=== PATIENT | female | born 1995 ===

== ENCOUNTER → 2019-01-25 | Outpatient (CLI) | payer OTHER ==
[2019-01-25 10:36] LABS: Basophils % (A) 0 %; Eosinophils # (A) 0.3 k/uL (0-0.7); Eosinophils % (A) 3 %; HCT 41.4 % (34.0-46.0); HGB 13.6 gm/dL (11.4-16.0); Lymphocytes # (A) 2.7 k/uL (1.0-4.8); Lymphocytes % (A) 26 %; MCH 27.3 pg (25.0-35.0); MCV 82.9 fL (80.0-100.0); Mean Platelet Volume 6.5; Monocytes # (A) 0.4 k/uL (0-1.0); Monocytes % (A) 4 %; Neutrophils # (A) 6.6 k/uL (1.3-7.7); Neutrophils % (A) 64 %; Platelet Count 392 k/uL (150-450); RBC 4.99 m/uL (3.80-5.40); RDW 13.5 % (11.5-15.5); WBC 10.2 k/uL (3.8-10.6)
[2019-01-25 17:26] LABS: African American GFR (CKD) 146.8 (60.0-200.0); Albumin 4.5 g/dL (3.80-4.90); Albumin/Globulin Ratio 1.8 (1.60-3.17); Anion Gap 8.7 mmol/L (4.00-12.00); Calcium 9.2 mg/dL (8.7-10.3); Carbon Dioxide 21.3 mmol/L (21.6-31.8); Chol/HDL Ratio 5.83; Globulin 2.5 g/dL (1.6-3.3); LDL Cholesterol,Calculated 78.4 mg/dL (0.0-131.0); Non-African American GFR(CKD) 126.7 (60.0-200.0); Potassium 4.5 mmol/L (3.5-5.5); Total Bilirubin 0.2 mg/dL (0.3-1.2); VLDL Calculation 66.6 mg/dL (5.00-40.00)
[2019-01-25 21:14] LABS: Estimated Average Glucose 136.98; Hemoglobin A1C 6.4 % (4.0-6.0)
== END | disposition home or self-care (01) ==
LOC: LABWHC1 09:44
PROVIDERS: ATTEND Family Medicine
DX: Z00.00 Encounter for general adult medical examination without abnormal findings (principal); Z12.4 Encounter for screening for malignant neoplasm of cervix
CPT/HCPCS: 36415; 80053; 80061; 83036; 84443; 85025

== ENCOUNTER 2019-02-18 17:52 | Emergency (ER) | payer OTHER ==
[2019-02-18 17:56] VITALS: BP 142/92; PULSE 105; RESP 18; TEMP 98.2
[2019-02-18] MEDS ORDERED: FAMOTIDINE 20 MG TAB PO STA (18:42)
[2019-02-18] MEDS ORDERED: predniSONE 20 MG TAB PO STA (18:42)
[2019-02-18] MEDS ORDERED: AMOXICILLIN 875 MG TAB PO STA (18:44)
--- NOTE | 2019-02-18 18:55 | ED ---
General Adult HPI - General Chief complaint: ENT Stated complaint: Sore throat Time Seen by Provider: 02/18/19 18:28 Source: patient Mode of arrival: ambulatory Limitations: no limitations - History of Present Illness Initial comments: Patient is 23-year-old female presenting to emergency Department with chief complaint of sore throat and sinus congestion. Patient states her symptoms began about 3 days ago and affect gradually increasing severity. She does report sinus congestion along with clear bilateral rhinorrhea. Denies any facial pressure or headaches. Also reports a nonproductive cough. Denies any wheezing or shortness of breath or chest pain. Denies taking medication to alleviate the symptoms. No history of asthma or smoking. She is also complaining of a rash near the coccyx. Patient reports she is fairly active and does not sit for prolonged periods of time. Denies any night sweats fever or chills. - Related Data Previous Rx's Medication Instructions Recorded Amoxicillin 875 mg PO Q12HR #20 tablet 02/18/19 Triamcinolone 0.5% Cream [Kenalog 1 applic TOPICAL BID #1 bottle 02/18/19 0.5% Cream] Allergies Allergy/AdvReac Type Severity Reaction Status Date / Time No Known Allergies Allergy Verified 02/18/19 17:56 Review of Systems ROS Statement: Those systems with pertinent positive or pertinent negative responses have been documented in the HPI. ROS Other: All systems not noted in ROS Statement are negative. Past Medical History Past Medical History: Unable to Obtain History of Any Multi-Drug Resistant Organisms: None Reported Past Surgical History: Unable to Obtain Past Psychological History: No Psychological Hx Reported Smoking Status: Never smoker Past Alcohol Use History: None Reported Past Drug Use History: None Reported General Exam Limitations: no limitations General appearance: alert, in no apparent distress Head exam: Present: atraumatic, normocephalic, normal inspection Eye exam: Present: normal appearance, PERRL, EOMI. Absent: conjunctival injection Pupils: Present: normal accommodation ENT exam: Present: normal exam, mucous membranes moist, TM's normal bilaterally, normal external ear exam. Absent: normal oropharynx (Bilateral enlarged tonsils with erythema. No exudates. Uvula midline. No drooling or changes in voice.) Neck exam: Present: normal inspection, full ROM. Absent: lymphadenopathy Respiratory exam: Present: normal lung sounds bilaterally. Absent: respiratory distress, wheezes, rales Cardiovascular Exam: Present: regular rate, normal rhythm, normal heart sounds Extremities exam: Present: normal inspection, full ROM Back exam: Present: full ROM. Absent: normal inspection (Eczema near the coccyx. No signs of decubitus ulcer.), tenderness (No tenderness in the region of the rash. Mild itchiness.) Neurological exam: Present: alert, oriented X3 Psychiatric exam: Present: normal affect, normal mood Skin exam: Present: warm, dry, intact, normal color, rash (Scaly rash near the coccyx. It appears to be eczema. No signs of decubitus ulcer.) Course Vital Signs 02/18/19 17:53 Temperature 98.2 F Pulse Rate 105 H Respiratory 18 Rate Blood Pressure 142/92 O2 Sat by Pulse 98 Oximetry Medical Decision Making - Medical Decision Making Patient is a 23-year-old female presenting to the emergency department with a chief complaint of cough or sinus congestion. Exam patient does have erythematous, enlarged bilateral tonsils with no exudates. No lymphadenopathy the patient is a nonproductive cough. On auscultation no wheezing respiratory distress noted. Vitals are stable. Patient will be treated for pharyngitis amoxicillin. The rash appears to be eczema at the coccyx. No signs of the decubitus ulcer. I will be treated with a topical steroid. Strict return parameters were thoroughly discussed patient is understanding and agreeable. Case discussed with physician Disposition Clinical Impression: Pharyngitis, Tonsillitis, Bronchitis Disposition: HOME SELF-CARE Condition: Stable Instructions (If sedation given, give patient instructions): Pharyngitis (ED) Additional Instructions: Please take prescribed medication as directed. Please follow up with primary care. Please return to emergency department if symptoms worsen. Prescriptions: Amoxicillin 875 mg PO Q12HR #20 tablet Triamcinolone 0.5% Cream [Kenalog 0.5% Cream] 1 applic TOPICAL BID #1 bottle Is patient prescribed a controlled substance at d/c from ED?: No Referrals: None,Stated [Primary Care Provider] - 1-2 days Time of Disposition: 18:55
== END 2019-02-18 19:38 | disposition home or self-care (01) ==
LOC: EC 17:52
DX: J40 Bronchitis, not specified as acute or chronic (principal); J03.90 Acute tonsillitis, unspecified; R21 Rash and other nonspecific skin eruption
CPT/HCPCS: 99282; J7512

== ENCOUNTER 2019-03-10 13:21 | Emergency (ER) | payer OTHER ==
[2019-03-10 14:30] LABS: Basophils % (A) 0 %; Eosinophils # (A) 0.3 k/uL (0-0.7); Eosinophils % (A) 4 %; HCT 39.3 % (34.0-46.0); Lymphocytes # (A) 2.1 k/uL (1.0-4.8); Lymphocytes % (A) 25 %; MCH 27.3 pg (25.0-35.0); MCHC 33.2 g/dL (31.0-37.0); MCV 82.3 fL (80.0-100.0); Mean Platelet Volume 6.4; Monocytes # (A) 0.4 k/uL (0-1.0); Monocytes % (A) 5 %; Neutrophils # (A) 5.4 k/uL (1.3-7.7); Neutrophils % (A) 65 %; Platelet Count 317 k/uL (150-450); RBC 4.78 m/uL (3.80-5.40); RDW 13.1 % (11.5-15.5); WBC 8.3 k/uL (3.8-10.6)
[2019-03-10] MEDS ORDERED: ONDANSETRON ODT 4 MG TAB PO STA (14:32)
[2019-03-10] MEDS ORDERED: ACETAMINOPHEN TAB 325 MG TAB PO STA (14:32)
--- NOTE | 2019-03-10 14:34 | ED ---
General Adult HPI - General Chief complaint: Abdominal Pain Stated complaint: N/V/D Time Seen by Provider: 03/10/19 14:19 Source: patient, RN notes reviewed Mode of arrival: ambulatory Limitations: no limitations - History of Present Illness Initial comments: This a 23-year-old female presents emergency Department chief complaint of nausea vomiting, fever cough congestion. Patient states that she has not felt well over the last few days she states she has multiple sick contacts with influenza. Patient states she is achy. She denies any significant past medical history denies any current abdominal pain no dysuria no hematuria denies any chance . States her cough is nonproductive. No chest pain or palpitations. Patient has not taken any recent Tylenol Motrin. - Related Data Previous Rx's Medication Instructions Recorded Amoxicillin 875 mg PO Q12HR #20 tablet 02/18/19 Triamcinolone 0.5% Cream [Kenalog 1 applic TOPICAL BID #1 bottle 02/18/19 0.5% Cream] Azithromycin [Zithromax Z-pack] 0 mg PO DIRECTED #1 pack 03/10/19 Allergies Allergy/AdvReac Type Severity Reaction Status Date / Time No Known Allergies Allergy Verified 03/10/19 13:32 Review of Systems ROS Statement: Those systems with pertinent positive or pertinent negative responses have been documented in the HPI. ROS Other: All systems not noted in ROS Statement are negative. Past Medical History Past Medical History: Hypertension History of Any Multi-Drug Resistant Organisms: None Reported Past Surgical History: No Surgical Hx Reported Past Psychological History: No Psychological Hx Reported Smoking Status: Never smoker Past Alcohol Use History: None Reported Past Drug Use History: None Reported General Exam Limitations: no limitations General appearance: alert, in no apparent distress Head exam: Present: atraumatic, normocephalic, normal inspection Eye exam: Present: normal appearance, PERRL, EOMI. Absent: scleral icterus, conjunctival injection, periorbital swelling ENT exam: Present: normal exam, normal oropharynx, mucous membranes moist Neck exam: Present: normal inspection, full ROM. Absent: tenderness, meningismus, lymphadenopathy Respiratory exam: Present: normal lung sounds bilaterally. Absent: respiratory distress, wheezes, rales, rhonchi, stridor Cardiovascular Exam: Present: normal rhythm, tachycardia, normal heart sounds. Absent: systolic murmur, diastolic murmur, rubs, gallop, clicks GI/Abdominal exam: Present: soft, normal bowel sounds. Absent: distended, tenderness, guarding, rebound, rigid Course Vital Signs 03/10/19 13:29 Temperature 98.5 F Pulse Rate 114 H Respiratory 18 Rate Blood Pressure 117/77 O2 Sat by Pulse 98 Oximetry Medical Decision Making - Medical Decision Making Chest x-ray shows possible bronchitis. Patient symptoms are consistent as influenza is negative. Patient's blood work shows mild hyperglycemia though patient states she recently 8. She is advised to follow-up with PCP for recheck for possible diabetes. Return parameters were discussed. - Lab Data Result diagrams: 03/10/19 14:10 03/10/19 14:10 Lab Results 03/10/19 03/10/19 03/10/19 Range/Units 14:10 14:10 14:10 WBC 8.3 (3.8-10.6) k/uL RBC 4.78 (3.80-5.40) m/uL Hgb 13.0 (11.4-16.0) gm/dL Hct 39.3 (34.0-46.0) % MCV 82.3 (80.0-100.0) fL MCH 27.3 (25.0-35.0) pg MCHC 33.2 (31.0-37.0) g/dL RDW 13.1 (11.5-15.5) % Plt Count 317 (150-450) k/uL Neutrophils % 65 % Lymphocytes % 25 % Monocytes % 5 % Eosinophils % 4 % Basophils % 0 % Neutrophils # 5.4 (1.3-7.7) k/uL Lymphocytes # 2.1 (1.0-4.8) k/uL Monocytes # 0.4 (0-1.0) k/uL Eosinophils # 0.3 (0-0.7) k/uL Basophils # 0.0 (0-0.2) k/uL Sodium 141 (137-145) mmol/L Potassium 4.1 (3.5-5.1) mmol/L Chloride 109 H (98-107) mmol/L Carbon Dioxide 21 L (22-30) mmol/L Anion Gap 11 mmol/L BUN 9 (7-17) mg/dL Creatinine 0.63 (0.52-1.04) mg/dL Est GFR (CKD-EPI)AfAm >90 (>60 ml/min/1.73 sqM) Est GFR (CKD-EPI)NonAf >90 (>60 ml/min/1.73 sqM) Glucose 241 H (74-99) mg/dL Calcium 9.5 (8.4-10.2) mg/dL Total Bilirubin 0.4 (0.2-1.3) mg/dL AST 23 (14-36) U/L ALT 19 (4-34) U/L Alkaline Phosphatase 77 (38-126) U/L Total Protein 7.6 (6.3-8.2) g/dL Albumin 4.2 (3.5-5.0) g/dL Amylase 38 (30-110) U/L Lipase 81 (23-300) U/L Urine Color Yellow Urine Appearance Cloudy H (Clear) Urine pH 6.0 (5.0-8.0) Ur Specific [place] 1.026 (1.001-1.035) Urine Protein Trace H (Negative) Urine Glucose (UA) 1+ H (Negative) Urine Ketones Negative (Negative) Urine Blood Trace H (Negative) Urine Nitrite Negative (Negative) Urine Bilirubin Negative (Negative) Urine Urobilinogen <2.0 (<2.0) mg/dL Ur Leukocyte Esterase Negative (Negative) Urine RBC 1 (0-5) /hpf Urine WBC 2 (0-5) /hpf Ur Squamous Epith Cells 4 (0-4) /hpf Amorphous Sediment Rare H (None) /hpf Urine Mucus Rare H (None) /hpf Urine HCG, Qual (Not Detectd) Influenza Type A RNA (Not Detectd) Influenza Type B (PCR) (Not Detectd) 03/10/19 03/10/19 Range/Units 14:10 14:15 WBC (3.8-10.6) k/uL RBC (3.80-5.40) m/uL Hgb (11.4-16.0) gm/dL Hct (34.0-46.0) % MCV (80.0-100.0) fL MCH (25.0-35.0) pg MCHC (31.0-37.0) g/dL RDW (11.5-15.5) % Plt Count (150-450) k/uL Neutrophils % % Lymphocytes % % Monocytes % % Eosinophils % % Basophils % % Neutrophils # (1.3-7.7) k/uL Lymphocytes # (1.0-4.8) k/uL Monocytes # (0-1.0) k/uL Eosinophils # (0-0.7) k/uL Basophils # (0-0.2) k/uL Sodium (137-145) mmol/L Potassium (3.5-5.1) mmol/L Chloride (98-107) mmol/L Carbon Dioxide (22-30) mmol/L Anion Gap mmol/L BUN (7-17) mg/dL Creatinine (0.52-1.04) mg/dL Est GFR (CKD-EPI)AfAm (>60 ml/min/1.73 sqM) Est GFR (CKD-EPI)NonAf (>60 ml/min/1.73 sqM) Glucose (74-99) mg/dL Calcium (8.4-10.2) mg/dL Total Bilirubin (0.2-1.3) mg/dL AST (14-36) U/L ALT (4-34) U/L Alkaline Phosphatase (38-126) U/L Total Protein (6.3-8.2) g/dL Albumin (3.5-5.0) g/dL Amylase (30-110) U/L Lipase (23-300) U/L Urine Color Urine Appearance (Clear) Urine pH (5.0-8.0) Ur Specific [place] (1.001-1.035) Urine Protein (Negative) Urine Glucose (UA) (Negative) Urine Ketones (Negative) Urine Blood (Negative) Urine Nitrite (Negative) Urine Bilirubin (Negative) Urine Urobilinogen (<2.0) mg/dL Ur Leukocyte Esterase (Negative) Urine RBC (0-5) /hpf Urine WBC (0-5) /hpf Ur Squamous Epith Cells (0-4) /hpf Amorphous Sediment (None) /hpf Urine Mucus (None) /hpf Urine HCG, Qual Not Detected (Not Detectd) Influenza Type A RNA Not Detected (Not Detectd) Influenza Type B (PCR) Not Detected (Not Detectd) Disposition Clinical Impression: Bronchitis Disposition: HOME SELF-CARE Condition: Stable Instructions (If sedation given, give patient instructions): Acute Bronchitis (ED) Additional Instructions: Please return to the Emergency Department if symptoms worsen or any other concerns. Prescriptions: Azithromycin [Zithromax Z-pack] 0 mg PO DIRECTED #1 pack Is patient prescribed a controlled substance at d/c from ED?: No Referrals: None,Stated [Primary Care Provider] - 1-2 days Time of Disposition: 15:40
[2019-03-10 14:39] LABS: ALT 19 U/L (4-34); AST 23 U/L (14-36); African American GFR (CKD) >90 (>60 ml/min/1.73 sqM); Albumin 4.2 g/dL (3.5-5.0); Alkaline Phosphatase 77 U/L (38-126); Amorphous Sediment,Urine Rare /hpf; Amylase 38 U/L (30-110); Anion Gap 11 mmol/L; Appearance,Urine Cloudy (Clear); Bilirubin,Urine Negative (Negative); Blood Urea Nitrogen 9 mg/dL (7-17); Blood,Urine Trace (Negative); Calcium 9.5 mg/dL (8.4-10.2); Carbon Dioxide 21 mmol/L (22-30); Chloride 109 mmol/L (98-107); Color,Urine Yellow; Glucose 241 mg/dL (74-99); Glucose,Urine (UA) 1+ (Negative); Ketones,Urine Negative (Negative); Leukocyte Esterase,Urine Negative (Negative); Mucus,Urine Rare /hpf; Nitrite,Urine Negative (Negative); Non-African American GFR(CKD) >90 (>60 ml/min/1.73 sqM); Potassium 4.1 mmol/L (3.5-5.1); Protein,Urine Trace (Negative); RBC,Urine 1 /hpf (0-5); Sodium 141 mmol/L (137-145); Specific Gravity,Urine 1.026 (1.001-1.035); Squamous Epithelial Cell,Urine 4 /hpf (0-4); Total Bilirubin 0.4 mg/dL (0.2-1.3); Total Protein 7.6 g/dL (6.3-8.2); Urobilinogen,Urine <2.0 mg/dL (<2.0); WBC,Urine 2 /hpf (0-5)
--- NOTE | 2019-03-10 15:30 | XR ---
EXAMINATION TYPE: XR chest 2V DATE OF EXAM: 03/10/2019 COMPARISON: NONE HISTORY: Cough, pain TECHNIQUE: Frontal and lateral views of the chest are obtained. FINDINGS: Patient is rotated. Exam is expiratory. There is bronchial wall thickening. There is no fo bam air space opacity, pleural effusion, or pneumothorax seen. The cardiac silhouette size is within normal limits. The osseous structures are intact. IMPRESSION: Expiratory rotated exam, correlate for bronchitis and follow-up as indicated.
[2019-03-10 15:53] VITALS: BP 154/98; PULSE 109; RESP 20; TEMP 99.1
== END 2019-03-10 15:53 | disposition home or self-care (01) ==
LOC: EC 13:21
DX: J40 Bronchitis, not specified as acute or chronic (principal); R73.9 Hyperglycemia, unspecified; R11.2 Nausea with vomiting, unspecified; I10 Essential (primary) hypertension
CPT/HCPCS: 36415; 71046; 80053; 81001; 81025; 82150; 83690; 85025; 87502; 99284

== ENCOUNTER 2021-11-27 15:37 | Emergency (ER) | payer OTHER ==
--- NOTE | 2021-11-27 16:50 | XR ---
EXAMINATION TYPE: XR forearm RT, XR humerus RT Right DATE OF EXAM: 11/27/2021 4:42 PM INDICATION: Patient age:Female; 26 years old; Reason for study: pain; COMPARISON: None TECHNIQUE: The right forearm and humerus was examined in AP and lateral projections. FINDINGS: No acute osseous pathology, soft tissue swelling or joint dislocations are seen. IMPRESSION: No evidence of acute fracture.
[2021-11-27 17:03] VITALS: RESP 16
[2021-11-27] MEDS ORDERED: KETOROLAC 15 MG/ML 1 ML VIAL IM STA (17:11)
--- NOTE | 2021-11-27 18:11 | ED ---
General Adult HPI - General Chief complaint: Extremity Injury, Upper Stated complaint: Right arm pain Time Seen by Provider: 11/27/21 16:14 Source: patient Mode of arrival: ambulatory Limitations: no limitations - History of Present Illness Initial comments: Patient is a 26-year-old female presenting with chief complaint of right arm pain. Patient states the pain has been going on for several days. Patient denies any trauma or injury. Patient states the pain is worse with range of motion. No numbness or tingling and no radiation of the pain up the neck, across the chest, or across the back. No shortness of breath. No abdominal pain, nausea, vomiting. No fever or chills. No redness or swelling. - Related Data Previous Rx's Medication Instructions Recorded Amoxicillin 875 mg PO Q12HR #20 tablet 02/18/19 Triamcinolone 0.5% Cream [Kenalog 1 applic TOPICAL BID #1 bottle 02/18/19 0.5% Cream] Azithromycin [Zithromax Z-pack (6 0 mg PO DIRECTED #1 pack 03/10/19 tabs)] Allergies Allergy/AdvReac Type Severity Reaction Status Date / Time No Known Allergies Allergy Verified 05/10/20 16:37 Review of Systems ROS Statement: Those systems with pertinent positive or pertinent negative responses have been documented in the HPI. ROS Other: All systems not noted in ROS Statement are negative. Past Medical History Past Medical History: Hypertension History of Any Multi-Drug Resistant Organisms: None Reported Past Surgical History: No Surgical Hx Reported Past Psychological History: No Psychological Hx Reported Smoking Status: Never smoker Past Alcohol Use History: None Reported Past Drug Use History: None Reported General Exam Limitations: no limitations General appearance: alert, in no apparent distress Head exam: Present: atraumatic, normocephalic, normal inspection Eye exam: Present: normal appearance, PERRL, EOMI. Absent: scleral icterus, conjunctival injection, periorbital swelling Neck exam: Present: normal inspection Respiratory exam: Present: normal lung sounds bilaterally. Absent: respiratory distress, wheezes, rales, rhonchi, stridor Cardiovascular Exam: Present: regular rate, normal rhythm, normal heart sounds. Absent: systolic murmur, diastolic murmur, rubs, gallop, clicks Extremities exam: Present: normal inspection, full ROM, tenderness (R Anterior shoulder), normal capillary refill. Absent: joint swelling Neurological exam: Present: alert, oriented X3, CN II-XII intact Psychiatric exam: Present: normal affect, normal mood Skin exam: Present: warm, dry, intact, normal color. Absent: rash Course Vital Signs 11/27/21 11/27/21 11/27/21 15:51 17:02 17:10 Temperature 97.2 F L 98.1 F Pulse Rate 102 H 77 Respiratory 18 16 16 Rate Blood Pressure 134/80 131/74 O2 Sat by Pulse 97 99 Oximetry 11/27/21 18:13 Temperature 97.6 F Pulse Rate 72 Respiratory 16 Rate Blood Pressure 131/72 O2 Sat by Pulse 100 Oximetry Medical Decision Making - Medical Decision Making Patient is a 26-year-old female presenting with chief complaint of right arm pain. Patient states the pain is worse with range of motion. No radiation of pain to the neck, chest, or back. No chest pain or difficulty breathing. On palpation patient has tenderness to the right anterior shoulder. Neurovascularly intact. X-rays show no acute process. Patient is educated on supportive treatment instructed to follow-up with her PCP. She is provided with a sling and potential orthopedic follow-up if needed after PCP appointment. Follow-up with PCP. Report back to ER with any new or worsening symptoms. Discussed return parameters and answered all questions. Patient conveyed verbal understanding and agreed to the plan. I discussed this case in detail with my attending Dr. Tripp. Disposition Clinical Impression: Strain of shoulder Disposition: HOME SELF-CARE Condition: Good Instructions (If sedation given, give patient instructions): Rotator Cuff Injury (ED), Rotator Cuff Injury Exercises (DC) Additional Instructions: Follow-up with PCP. Report back to ER with any new or worsening symptoms. Take Motrin and Tylenol as needed for pain control. May need orthopedic follow-up. Is patient prescribed a controlled substance at d/c from ED?: No Referrals: None,Stated [Primary Care Provider] - 1-2 days Fasuto Christine PAC [PHYSICIAN RESIDENTIAL CAREGIVER] - 1-2 days Time of Disposition: 18:11
[2021-11-27 18:15] VITALS: BP 131/72; PULSE 72; TEMP 97.6
== END 2021-11-27 18:17 | disposition home or self-care (01) ==
LOC: EC 15:37
DX: S46.911A Strain of unspecified muscle, fascia and tendon at shoulder and upper arm level, right arm, initial encounter (principal); I10 Essential (primary) hypertension; Z79.899 Other long term (current) drug therapy; X50.9XXA Other and unspecified overexertion or strenuous movements or postures, initial encounter
CPT/HCPCS: 73060; 73090; 99283; 96372; J1885

== ENCOUNTER 2023-05-06 07:22 | Emergency (ER) | payer OTHER ==
[2023-05-06 07:30] LABS: Glucose,Whole Blood 135 mg/dL (70-110)
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
[2023-05-06 08:07] VITALS: BP 149/101; PULSE 85; RESP 18; TEMP 98.2
--- NOTE | 2023-05-06 08:18 | XR ---
EXAMINATION TYPE: XR chest 1V portable DATE OF EXAM: 05/06/2023 COMPARISON: 03/10/2019 HISTORY: Shortness of breath TECHNIQUE: Single frontal view of the chest is obtained. FINDINGS: Patchy perihilar pattern with tiny right effusion. No pneumothorax. Limited inspiration. H eart size stable. Osseous structures unchanged. IMPRESSION: Patchy bilateral perihilar pattern. Favor interstitial pneumonia\pneumonitis over CHF.
--- NOTE | 2023-05-06 08:21 | XR ---
EXAMINATION TYPE: XR pelvis AP view DATE OF EXAM: 05/06/2023 COMPARISON: NONE HISTORY: Pain The osseous structures are intact and the joint spaces are preserved. No acute fracture is seen. Vi sualized bowel gas pattern is nonspecific. IMPRESSION: 1. No acute fracture.
--- NOTE | 2023-05-06 08:53 | XR ---
EXAMINATION TYPE: XR elbow complete RT DATE OF EXAM: 05/06/2023 COMPARISON: NONE HISTORY: Pain FINDINGS: Three views of the elbow demonstrate no pathologic joint effusion. The osseous structures are intact . There is no acute fracture or dislocation. Tiny olecranon spur. IMPRESSION: 1. No acute fracture or dislocation. If symptoms persist follow-up study in 7 to 10 days could be ob tained.
== END 2023-05-06 09:15 | disposition home or self-care (01) ==
LOC: EC 07:22
DX: S50.01XA Contusion of right elbow, initial encounter (principal); V89.2XXA Person injured in unspecified motor-vehicle accident, traffic, initial encounter; Y93.01 Activity, walking, marching and hiking; Y92.410 Unspecified street and highway as the place of occurrence of the external cause
CPT/HCPCS: 36415; 93005; 72170; 73080; 71045; 99284; G0390

== ENCOUNTER 2023-05-08 13:58 | Emergency (ER) | payer OTHER ==
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
--- NOTE | 2023-05-08 15:41 | XR ---
EXAMINATION TYPE: XR chest 1V DATE OF EXAM: 05/08/2023 COMPARISON: NONE HISTORY: Dizziness TECHNIQUE: Single frontal view of the chest is obtained. FINDINGS: Limited inspiration. There is no focal air space opacity, pleural effusion, or pneumothora x seen. The cardiac silhouette size is within normal limits. The osseous structures are intact. IMPRESSION: No acute process.
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
[2023-05-08 16:05] VITALS: RESP 18
[2023-05-08 16:41] VITALS: BP 118/81; PULSE 89; TEMP 97.9
== END 2023-05-08 16:15 | disposition home or self-care (01) ==
LOC: EC 13:58
DX: S06.0XAA Concussion with loss of consciousness status unknown, initial encounter (principal); V49.9XXA Car occupant (driver) (passenger) injured in unspecified traffic accident, initial encounter; Y92.410 Unspecified street and highway as the place of occurrence of the external cause
CPT/HCPCS: 70450; 71045; 72125; 72170; 99284

== ENCOUNTER 2024-09-07 15:52 | Emergency (ER) | payer OTHER ==
[2024-09-07 16:22] VITALS: TEMP 98.1
--- NOTE | 2024-09-07 17:04 | ED ---
ENT HPI - General Chief complaint: ENT Stated complaint: Left Ear Pain Time Seen by Provider: 09/07/24 16:44 Source: patient Mode of arrival: ambulatory Limitations: no limitations - History of Present Illness Initial comments: 28-year-old female present with chief complaint of left ear pain. Ongoing for about 2 weeks. No muffled hearing. No bleeding or discharge. Pain is closer to the outside of the ear. No fever. No cough or congestion. No other complaints. - Related Data Home Medications Medication Instructions Recorded Confirmed lisinopriL [Prinivil] 10 mg PO DAILY 05/06/23 05/06/23 Previous Rx's Medication Instructions Recorded Ciprofloxacin-Dexameth [Ciprodex 4 drops LEFT EAR BID 7 Days #7.5 ml 09/07/24 Otic Susp] Allergies Allergy/AdvReac Type Severity Reaction Status Date / Time No Known Allergies Allergy Verified 05/06/23 09:05 Review of Systems ROS Statement: Those systems with pertinent positive or pertinent negative responses have been documented in the HPI. ROS Other: All systems not noted in ROS Statement are negative. Past Medical History Past Medical History: Hypertension History of Any Multi-Drug Resistant Organisms: None Reported Past Surgical History: No Surgical Hx Reported Past Psychological History: No Psychological Hx Reported Smoking Status: Never smoker Past Alcohol Use History: None Reported Past Drug Use History: None Reported General Exam Limitations: no limitations General appearance: alert, in no apparent distress Head exam: Present: atraumatic, normocephalic, normal inspection Eye exam: Present: normal appearance, EOMI. Absent: periorbital swelling Expanded TM/Canal exam: Canal Tenderness: Left TM Neck exam: Present: normal inspection. Absent: meningismus Respiratory exam: Absent: respiratory distress Cardiovascular Exam: Present: regular rate Neurological exam: Present: alert, oriented X3 Psychiatric exam: Present: normal affect, normal mood Skin exam: Present: warm, dry, normal color Course Vital Signs 09/07/24 16:20 Temperature 98.1 F Pulse Rate 98 Respiratory 16 Rate Blood Pressure 146/91 O2 Sat by Pulse 98 Oximetry Medical Decision Making - Medical Decision Making Was pt. sent in by a medical professional or institution (, PA, FILM SOUND COORDINATOR, urgent care, hospital, or correction...) When possible be specific @ -No Did you speak to anyone other than the patient for history (EMS, parent, family, police, friend...)? What history was obtained from this source @ -No Did you review nursing and triage notes (agree or disagree)? Why? @ -I reviewed and agree with nursing and triage notes Were old charts reviewed (outside hosp., previous admission, EMS record, old EKG, old radiological studies, urgent care reports/EKG's, correction records)? Report findings @ -No old charts were reviewed Differential Diagnosis (chest pain, altered mental status, abdominal pain women, abdominal pain men, vaginal bleeding, weakness, fever, dyspnea, syncope, headache, dizziness, GI bleed, back pain, seizure, CVA, palpatations, mental health, musculoskeletal)? @ -Differential includes otitis media, otitis externa, mastoiditis, not an all- inclusive list EKG interpreted by me (3pts min.). @ -As above X-rays interpreted by me (1pt min.). @ -None done CT interpreted by me (1pt min.). @ -None done U/S interpreted by me (1pt. min.). @ -None done What testing was considered but not performed or refused? (CT, X-rays, U/S, labs)? Why? @ -None What meds were considered but not given or refused? Why? @ -None Did you discuss the management of the patient with other professionals (pr ofessionals i.e. , PA, FILM SOUND COORDINATOR, lab, RT, psych nurse, social economist, microphone boom operator, teacher, gifts officer, case mgr)? Give summary @ -No Was smoking cessation discussed for >3mins.? @ -No Was critical care preformed (if so, how long)? @ -No Were there social determinants of health that impacted care today? How? (Homelessness, low income, unemployed, alcoholism, drug addiction, transportation, low edu. Level, literacy, decrease access to med. care, half-way, rehab)? @ -No Was there de-escalation of care discussed even if they declined (Discuss DNR or withdrawal of care, Hospice)? DNR status @ -No What co-morbidities impacted this encounter? (DM, HTN, Smoking, COPD, CAD, Cancer, CVA, ARF, Chemo, Hep., AIDS, mental health diagnosis, sleep apnea, morbid obesity)? @ -None Was patient admitted / discharged? Hospital course, mention meds given and route, prescriptions, significant lab abnormalities, going to OR and other pertinent info. @ -28-year-old female presenting with chief complaint of left ear pain. On examination there is canal swelling and tenderness. There is tragal tenderness. No mastoid erythema or swelling. No fever. Patient started on Ciprodex drops. Follow-up with PCP. Report back to ER with any new or worsening symptoms. Discussed return parameters and answered all questions. Patient conveyed verbal understanding and agreed to the plan. I discussed this case in detail with my attending Dr. Khalil Undiagnosed new problem with uncertain prognosis? @ -No Drug Therapy requiring intensive monitoring for toxicity (Heparin, Nitro, Insulin, Cardizem)? @ -No Were any procedures done? @ -No Diagnosis/symptom? @ -Otitis externa Acute, or Chronic, or Acute on Chronic? @ -Acute Uncomplicated (without systemic symptoms) or Complicated (systemic symptoms)? @ -Uncomplicated Side effects of treatment? @ -No Exacerbation, Progression, or Severe Exacerbation? @ -No Poses a threat to life or bodily function? How? (Chest pain, [place], [place], pneumonia, PE, COPD, DKA, ARF, appy, cholecystitis, CVA, Diverticulitis, Homicidal, Suicidal, threat to staff... and all critical care pts) @ -Unlikely Disposition Clinical Impression: Otitis externa Disposition: HOME SELF-CARE Condition: Good Instructions (If sedation given, give patient instructions): [facility] (ED) Additional Instructions: Follow-up with your PCP. Report back to ER with any new or worsening symptoms. Apply 4 eardrops to the affected ear twice daily for 7 days Prescriptions: Ciprofloxacin-Dexameth [Ciprodex Otic Susp] 4 drops LEFT EAR BID 7 Days #7.5 ml Is patient prescribed a controlled substance at d/c from ED?: No Referrals: Rob Pearce MD [Primary Care Provider] - 1-2 days Time of Disposition: 17:04
[2024-09-07] MEDS: CIPROFLOXACIN-DEXAMETH 0.3-0.1% DROPS 7.5 ML BTL LEFT EAR STA (17:41)
[2024-09-07 17:51] VITALS: BP 124/84; PULSE 95; RESP 18
== END 2024-09-07 17:34 | disposition home or self-care (01) ==
LOC: EC 15:52
DX: H60.92 Unspecified otitis externa, left ear (principal)
CPT/HCPCS: 99282